=== PATIENT | female | born 1980 | race Two or more races ===

== ENCOUNTER 2024-07-27 08:59 | Outpatient (RCR) | payer OTHER, SELFPAY ==
[2024-07-06 09:24] VITALS: BP 118/65; PULSE 71; RESP 18; TEMP 36.3; O2SAT 98
[2024-07-06] MEDS: FERRIC SOD GLUC INJ 125 MG in SODIUM CHLORIDE 0.9% 100 ML 110 MG IV (09:42)
--- NOTE | 2024-07-06 09:58 | CHAP ---
Patient expressed gratitude for prayer before their procedure.
[2024-07-06 10:45] VITALS: BP 115/64; PULSE 67; RESP 18; TEMP 36.2; O2SAT 99
[2024-07-13 09:21] VITALS: BP 127/52; PULSE 67; RESP 18; TEMP 36.3; O2SAT 100
[2024-07-13] MEDS: FERRIC SOD GLUC INJ 125 MG in SODIUM CHLORIDE 0.9% 100 ML 110 MG IV (09:28)
[2024-07-13 10:40] VITALS: BP 115/62; PULSE 67; RESP 19; TEMP 36.3; O2SAT 99
[2024-07-21 09:10] VITALS: BP 135/97; PULSE 69; RESP 17; TEMP 36.6; O2SAT 99; BMI 40.0
[2024-07-21] MEDS: FERRIC SOD GLUC INJ 125 MG in SODIUM CHLORIDE 0.9% 100 ML 110 MG IV (09:27)
[2024-07-27 09:20] VITALS: BP 113/61; PULSE 74; RESP 15; TEMP 36.8; O2SAT 100; BMI 39.6
[2024-07-27] MEDS: FERRIC SOD GLUC INJ 125 MG in SODIUM CHLORIDE 0.9% 100 ML 110 MG IV (10:01)
[2024-07-27 11:15] VITALS: BP 110/73; PULSE 73; RESP 16; TEMP 36.7; O2SAT 100
== END 2024-07-31 23:59 | disposition home or self-care (01) ==
LOC: SFLEX 08:59
PROVIDERS: PCP Internal Medicine; Referring Provider Internal Medicine; Visit Provider Internal Medicine
PROC: (CPT 96365; principal; 2024-07-06 09:00)
DX: D50.9 Iron deficiency anemia, unspecified (principal)
CPT/HCPCS: 96365; 96366; J2916; J7050

== ENCOUNTER → 2024-10-09 | Outpatient (CLI) | payer OTHER, SELFPAY ==
--- NOTE | 2024-10-09 09:00 | XR_ITS ---
Examination: Breast ultrasound complete, bilateral Date and time of exam: October 09, 2024 0928 hours INDICATIONS: Family history, mother, breast cancer, history left breast biopsy 3:00 nodule negative Technique: Real-time grayscale ultrasonographic imaging bilateral breasts, including all 4 quadrants as well as nipple retroareolar and axillary regions. Findings: Sonographic images right breast 10:00 nodule lobular margins 4 x 4 7 x 5 mm Sonographic images left breast 7:00 cyst 6 x 3 mm 9:00 cyst 8 x 5 mm IMPRESSION: BI-RADS Category 3: Probably benign findings One additional 6 month right breast sonogram follow-up is needed to document stability of 10:00 nodule described above
--- NOTE | 2024-10-09 10:00 | XR_ITS ---
Examination: Screening digital mammography, bilateral Computer aided detection 3-D breast Tomosynthesis, bilateral Date and time of exam: October 09, 2024 0936 hours Compared to mammograms dating to May 16, 2022 Indication: Screening Technique: Nonmagnified MLO, CC views of the breasts to been obtained, reconstructed from 3-D Tomosynthesis images. R2 computer aided detection program utilized for evaluation of suspicious masses and/or abnormal calcifications. 3-D Tomosynthesis images obtained. Findings: The breasts are heterogeneously dense, which may obscure small masses Numerous bilateral calcifications Breast biopsy marker upper outer left breast No interval suspicious masses Impression: BI-RADS category II: Benign Findings. Recommend 1 year follow-up mammogram.
== END | disposition home or self-care (01) ==
LOC: CDIM 08:55
PROVIDERS: Referring Provider Internal Medicine; Visit Provider Internal Medicine
DX: Z12.31 Encounter for screening mammogram for malignant neoplasm of breast (principal); N63.11 Unspecified lump in the right breast, upper outer quadrant; R92.333 Mammographic heterogeneous density, bilateral breasts
CPT/HCPCS: 76641; 77063; 77067